=== PATIENT | male | born 1955 | race Caucasian/White ===

== ENCOUNTER 2021-12-05 21:15 | Emergency (ER) | payer BC ==
[~2021-12-05] VITALS: Ht 177.8 cm; Wt 115.6 kg
[2021-12-05] MEDS ORDERED: LANTUS PEN100 U/ML SQ (21:53)
[2021-12-05] MEDS ORDERED: COZAAR100 MG PO (21:55)
[2021-12-05] MEDS ORDERED: NOVOLOG FLEX100 U/ML SQ (21:55)
[2021-12-05] MEDS ORDERED: HCTZ 25MG25 MG PO (21:58)
[2021-12-05] MEDS ORDERED: LIPITOR 10M10 MG/TAB PO (21:58)
[2021-12-05] MEDS ORDERED: NATURAL IRON65 MG PO (21:59)
[2021-12-05] MEDS ORDERED: PHARMASSURE ZIN50 MG PO (22:00)
[2021-12-05] MEDS ORDERED: ONE-DAILY MULT1 EAC1 PO (22:00)
[2021-12-05] MEDS ORDERED: POTASSIUM99 M3 PO (22:01)
[2021-12-05 22:55] VITALS: BP 136/94
== END 2021-12-05 22:51 | disposition home or self-care (01) ==
LOC: ED 21:15
DX: S01.312A Laceration without foreign body of left ear, initial encounter (principal); W01.198A Fall on same level from slipping, tripping and stumbling with subsequent striking against other object, initial encounter; Y93.A1 Activity, exercise machines primarily for cardiorespiratory conditioning

== ENCOUNTER → 2024-10-30 | Outpatient (CLI) | payer MEDICARE ==
[~2024-10-30] MED LIST: COZAAR100 MG PO; HCTZ 25MG25 MG PO; LANTUS PEN100 U/ML SQ; LIPITOR 10M10 MG/TAB PO; NATURAL IRON65 MG PO; NOVOLOG FLEX100 U/ML SQ; ONE-DAILY MULT1 EAC1 PO; PHARMASSURE ZIN50 MG PO; POTASSIUM99 M3 PO
== END ==
LOC: RAD 13:42
DX: S06.0XAA Concussion with loss of consciousness status unknown, initial encounter (principal); R42 Dizziness and giddiness